=== PATIENT | female | born 1935 | race Caucasian/White ===

== ENCOUNTER 2018-04-24 05:35 | Inpatient (IN) | payer MEDICARE ==
--- NOTE | 2018-04-24 05:50 | Emergency Department Record ---
History of Present Illness - General Chief Complaint: Abdominal Pain Stated Complaint: CHEST PAIN Time Seen by Provider: 04/24/18 05:44 Source: Patient - History of Present Illness Initial Comments: The patient states that she developed generalized abdominal pain around 8:30 or 9:00 last evening, 9 hours ago. It has moved into her epigastrum and up slightly into her chest, with a trace of it into her back. EMS reported it as chest pain, gave he an aspirin, nitro, and zofran. The patient states that the zofran helped her nausea, but the nitro did not help her pain. She denies fever , chills, cough, shortness of breath. For the past several days to a week she has had diarrhea and vomiting as well. She has brown emesis, and brown diarrhea , denies bloody or black stool. PSH: she has had a total hysterectomy and appendectomy in years past. MD Complaint: Abdominal pain - Related Data Home Medications Medication Instructions Recorded Confirmed Last Taken Acetaminophen [Tylenol] 325 mg PO TID 04/24/18 04/24/18 04/23/18 Albuterol Sulfate [Ventolin Hfa] 1 - 2 puff IH .EVERY 4-6 HOURS PRN 04/24/18 Unknown Alprazolam [Xanax] 0.25 mg PO BID PRN 04/24/18 04/24/18 04/24/18 Amlodipine Besylate [Norvasc] 5 mg PO DAILY 04/24/18 04/24/18 04/23/18 Brimonidine Tartrate/Timolol 1 drop OP TID 04/24/18 04/24/18 04/23/18 [Combigan 0.2%-0.5% Eye Drops] Buspirone HCl [Buspar] 10 mg PO BID 04/24/18 04/24/18 04/23/18 Celecoxib [Celebrex] 200 mg PO BID 04/24/18 04/24/18 04/23/18 Cyclosporine [Restasis] 1 each OP BID 04/24/18 04/24/18 04/23/18 Dextran 70/Hypromellose 1 each OP ASDIR PRN 04/24/18 04/24/18 Unknown [Artificial Tears] Docusate Sodium [Colace] 100 mg PO BID 04/24/18 04/24/18 04/23/18 Donepezil HCl [Aricept] 10 mg PO DAILY 04/24/18 04/24/18 04/23/18 Hydrocodone/Acetaminophen [[place] 1 tab PO BID PRN 04/24/18 04/24/18 04/23/18 5mg/325mg] Latanoprost 0.005% Opth [place] 1 drop OPTH QHS 04/24/18 04/24/18 04/23/18 [Xalatan] Metaxalone [Skelaxin] 800 mg PO TID 04/24/18 04/24/18 04/23/18 Montelukast Sodium [Singulair] 10 mg PO QPM 04/24/18 04/24/18 04/23/18 Multivitamin [Daily Multiple 1 each PO DAILY 04/24/18 04/24/18 04/23/18 Vitamin] Polyethylene Glycol 3350 [Miralax] 1 packet PO DAILY 04/24/18 04/24/18 04/23/18 Propylene Glycol [Systane Balance] 20 ml OP Q2H PRN 04/24/18 04/24/18 Unknown Simvastatin [Zocor] 20 mg PO DAILY 04/24/18 04/24/18 04/23/18 Sumatriptan Succinate [Imitrex] 50 mg PO DAILY PRN 04/24/18 04/24/18 04/12/18 Trazodone HCl 150 mg PO QHS 04/24/18 04/24/18 04/23/18 Vit C/Vit E/Lutein/Min/[place]-3 1 each PO DAILY 04/24/18 04/24/18 04/23/18 [Ocuvite Softgel] Allergies Allergy/AdvReac Type Severity Reaction Status Date / Time Penicillins Allergy PT UNSURE Verified 04/24/18 05:38 OF REACTION sulfamethoxazole Allergy PT UNSURE Verified 04/24/18 05:38 [From Bactrim] OF REACTION trimethoprim [From Bactrim] Allergy PT UNSURE Verified 04/24/18 05:38 OF REACTION Review of Systems Reviewed: No additional complaints except as noted below Constitutional: Reports: As per HPI. Denies: Chills, Fever, Malaise, Night sweats, Weakness, Weight change Eyes: Reports: As per HPI. Denies: Eye discharge, Eye pain, Photophobia, Vision change ENT: Reports: As per HPI. Denies: Congestion, Dental pain, Ear pain, Epistaxis , Hearing loss, Throat pain Respiratory: Reports: As per HPI. Denies: Cough, Dyspnea, Hemoptysis, Stridor, Wheezes Cardiovascular: Reports: As per HPI. Denies: Arrhythmia, Chest pain, Dyspnea on exertion, Edema, Murmurs, Orthopnea, Palpitations, Paroxysmal nocturnal dyspnea, Rheumatic Fever, Syncope Endocrine: Reports: As per HPI. Denies: Fatigue, Heat or cold intolerance, Polydipsia, Polyuria Gastrointestinal: Reports: As per HPI. Denies: Abdominal pain, Constipation, Diarrhea, Hematemesis, Hematochezia, Melena, Nausea, Vomiting Genitourinary: Reports: As per HPI. Denies: Abnormal menses, Discharge, Dyspareunia, Dysuria, Frequency, Hematuria, Incontinence, Retention, Urgency Musculoskeletal: Reports: As per HPI. Denies: Arthralgia, Back pain, Gout, Joint swelling, Myalgia, Neck pain Skin: Reports: As per HPI. Denies: Bruising, Change in color, Change in hair/ nails, Lesions, Pruritus, Rash Neurological: Reports: As per HPI. Denies: Abnormal gait, Confusion, Headache, Numbness, Paresthesias, Seizure, Tingling, Tremors, Vertigo, Weakness Psychiatric: Reports: As per HPI. Denies: Anxiety, Auditory hallucinations, Depression, Homicidal thoughts, Suicidal thoughts, Visual hallucinations Hematological/Lymphatic: Reports: As per HPI. Denies: Anemia, Blood Clots, Easy bleeding, Easy bruising, Swollen glands Physical Exam - General General Appearance: Alert, Oriented x3, Cooperative, No acute distress, Other ( elderly, resting tremor) - Head Head exam: Normal inspection - Eye Eye exam: Normal appearance, PERRL Pupils: Normal accommodation - ENT ENT exam: Normal exam, Mucous membranes moist, Normal external ear exam, Normal orophraynx, TM's normal bilaterally Ear exam: Normal external inspection. negative: External canal tenderness Nasal Exam: Normal inspection. negative: Discharge, Sinus tenderness Mouth exam: Normal external inspection, Tongue normal Teeth exam: Normal inspection. negative: Dental caries Throat exam: Normal inspection. negative: Tonsillar erythema, Tonsillar exudate - Neck Neck exam: Normal inspection, Full ROM, Other (JVD at 30 degress head elevation) . negative: Tenderness - Respiratory Respiratory exam: Normal lung sounds bilaterally. negative: Respiratory distress - Cardiovascular Cardiovascular Exam: Regular rate, Normal rhythm, Normal heart sounds - GI/Abdominal GI/Abdominal exam: Soft, Normal bowel sounds, Tenderness (mid and epigastric abdominal tenderness on palpation). negative: Distended, Rigid - Rectal Rectal exam: Deferred - exam: Deferred - Extremities Extremities exam: Normal inspection, Full ROM, Normal capillary refill. negative: Calf tenderness, Pedal edema, Tenderness - Back Back exam: Reports: Normal inspection, Full ROM. Denies: Muscle spasm, Rash noted, Tenderness - Neurological Neurological exam: Alert, CN II-XII intact, Normal gait, Oriented X3, Reflexes normal. 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 It may be more sore from all her vomiting, but it is otherwise unchanged from he usual. 04/24/18 06:49 Reevaluation #2: The patient is in xray currently. Care turned over to Dr. Gore at 7 a.m. shift changed due to pending studies. 04/24/18 06:50 Medical Decision Making - Data Complexity MDM Data: Labs Ordered and/or Reviewed, EKG Ordered and/or Reviewed (NSR, nl axis, LVH, no acute changes, no prior available) - Lab Data Result diagrams: 04/24/18 06:05 04/24/18 06:05 - EKG Data -: EKG Interpreted by Me EKG: No Acute Changes Disposition Clinical Impression: Abdominal pain Qualifiers: Abdominal location: generalized Qualified Code(s): R10.84 - Generalized abdominal pain Forms: Patient Portal Access Quality - Quality Measures Quality Measures: N/A - Blood Pressure Screening Does Patient Have Any of the Following: No Blood Pressure Classification: Pre-Hypertensive BP Reading Systolic Measurement: 145 Diastolic Measurement: 84 Screening for High Blood Pressure: < Pre-Hypertensive BP, F/U Documented > [ G8950] Pre-Hypertensive Follow-up Interventions: Follow-up with rescreen every year.
[2018-04-24 06:12] LABS: HEMATOCRIT 37.7 % (35.0-47.0); HEMOGLOBIN 12.1 gm/dl (11.6-16.0); MEAN CELL VOLUME 86.3 fl (81-97); MEAN CORPUSCULAR HEMOGLOBIN 27.7 pg (27-33); MEAN CORPUSCULAR HGB CONC 32.1 g/dl (32-36); MEAN PLATELET VOLUME 8.8 fl (7.4-10.4); PLATELET COUNT 365 K/uL (130-400); RED BLOOD COUNT 4.37 M/uL (3.80-5.40); RED CELL DISTRIBUTION WIDTH 15.6 % (11.5-14.5); WHITE BLOOD COUNT W/O DIFF 10.6 K/uL (4.2-12.2)
[2018-04-24 06:23] LABS: PARTIAL THROMBOPLASTIN TIME 44.6 SECONDS (24.5-39.1); PROTHROMBIN TIME (PATIENT) 10.3 SECONDS (9.5-12.1)
[2018-04-24 06:25] LABS: BLOOD UREA NITROGEN 21 mg/dL (8-23); CREATININE 0.6 mg/dL (0.5-0.9); EST GLOMERULAR FILTRATION RATE > 60 mL/min
[2018-04-24 06:26] LABS: TOTAL PROTEIN 6.9 g/dL (6.6-8.7)
[2018-04-24 06:28] LABS: GLUCOSE,RANDOM 126 mg/dL (74-109)
[2018-04-24 06:30] LABS: ALB/GLOB RATIO 1.2 (1.1-1.8); ALBUMIN 3.7 g/dL (4.0-5.0); ALT/SGPT < 5 U/L (<33); AST/SGOT 9 U/L (10.0-35.0)
[2018-04-24 06:31] LABS: ALKALINE PHOSPHATASE 59 U/L (35-104); LIPASE 22 U/L (13-60)
[2018-04-24 06:43] LABS: THYROID STIMULATING HORMONE 1.56 uIU/mL (0.270-4.20)
[2018-04-24] MEDS ORDERED: HYDROMORPHONE HCL 2 MG/ML VIAL IVP ONE ×2 (07:30→08:18)
[2018-04-24] MEDS ORDERED: ONDANSETRON HCL IV 4 MG/2 ML VIAL IVP ONE (07:30)
[2018-04-24] MEDS ORDERED: PANTOPRAZOLE SODIUM IV 40 MG VIAL IVP ONE ×2 (08:19→16:14)
[2018-04-24] MEDS ORDERED: METOCLOPRAMIDE HCL 10 MG/2 ML VIAL IVP ONE (08:22)
--- NOTE | 2018-04-24 08:51 | Emergency Department Record ---
History of Present Illness - General Chief Complaint: Abdominal Pain Stated Complaint: CHEST PAIN Time Seen by Provider: 04/24/18 05:44 Source: Patient Mode of Arrival: EMS - History of Present Illness MD Complaint: Abdominal pain Onset/Timin -: Hour(s) Location: Diffuse Radiation: Epigastric Severity scale (1-10): 8 Consistency: Constant, Getting worse Associated Symptoms: Diarrhea, Nausea, Vomiting - Related Data Patient : No Home Medications Medication Instructions Recorded Confirmed Last Taken Acetaminophen [Tylenol] 325 mg PO TID 04/24/18 04/24/18 04/23/18 Albuterol Sulfate [Ventolin Hfa] 1 - 2 puff IH .EVERY 4-6 HOURS PRN 04/24/18 Unknown Alprazolam [Xanax] 0.25 mg PO BID PRN 04/24/18 04/24/18 04/24/18 Amlodipine Besylate [Norvasc] 5 mg PO DAILY 04/24/18 04/24/18 04/23/18 Brimonidine Tartrate/Timolol 1 drop OP TID 04/24/18 04/24/18 04/23/18 [Combigan 0.2%-0.5% Eye Drops] Buspirone HCl [Buspar] 10 mg PO BID 04/24/18 04/24/18 04/23/18 Celecoxib [Celebrex] 200 mg PO BID 04/24/18 04/24/18 04/23/18 Cyclosporine [Restasis] 1 each OP BID 04/24/18 04/24/18 04/23/18 Dextran 70/Hypromellose 1 each OP ASDIR PRN 04/24/18 04/24/18 Unknown [Artificial Tears] Docusate Sodium [Colace] 100 mg PO BID 04/24/18 04/24/18 04/23/18 Donepezil HCl [Aricept] 10 mg PO DAILY 04/24/18 04/24/18 04/23/18 Hydrocodone/Acetaminophen [[place] 1 tab PO BID PRN 04/24/18 04/24/18 04/23/18 5mg/325mg] Latanoprost 0.005% Opth [place] 1 drop OPTH QHS 04/24/18 04/24/18 04/23/18 [Xalatan] Metaxalone [Skelaxin] 800 mg PO TID 04/24/18 04/24/18 04/23/18 Montelukast Sodium [Singulair] 10 mg PO QPM 04/24/18 04/24/18 04/23/18 Multivitamin [Daily Multiple 1 each PO DAILY 04/24/18 04/24/18 04/23/18 Vitamin] Polyethylene Glycol 3350 [Miralax] 1 packet PO DAILY 04/24/18 04/24/18 04/23/18 Propylene Glycol [Systane Balance] 20 ml OP Q2H PRN 04/24/18 04/24/18 Unknown Simvastatin [Zocor] 20 mg PO DAILY 04/24/18 04/24/18 04/23/18 Sumatriptan Succinate [Imitrex] 50 mg PO DAILY PRN 04/24/18 04/24/18 04/12/18 Trazodone HCl 150 mg PO QHS 04/24/18 04/24/18 04/23/18 Vit C/Vit E/Lutein/Min/[place]-3 1 each PO DAILY 04/24/18 04/24/18 04/23/18 [Ocuvite Softgel] Allergies Allergy/AdvReac Type Severity Reaction Status Date / Time Penicillins Allergy PT UNSURE Verified 04/24/18 05:38 OF REACTION sulfamethoxazole Allergy PT UNSURE Verified 04/24/18 05:38 [From Bactrim] OF REACTION trimethoprim [From Bactrim] Allergy PT UNSURE Verified 04/24/18 05:38 OF REACTION Travel Screening - Travel/Exposure Within Last 30 Days Have you traveled within the last 30 days?: No - Travel Symptoms Symptom Screening: None Review of Systems Constitutional: Reports: As per HPI. Denies: Chills, Fever, Malaise, Night sweats, Weakness, Weight change Eyes: Reports: As per HPI. Denies: Eye discharge, Eye pain, Photophobia, Vision change ENT: Reports: As per HPI. Denies: Congestion, Dental pain, Ear pain, Epistaxis , Hearing loss, Throat pain Respiratory: Reports: As per HPI. Denies: Cough, Dyspnea, Hemoptysis, Stridor, Wheezes Cardiovascular: Reports: As per HPI. Denies: Arrhythmia, Chest pain, Dyspnea on exertion, Edema, Murmurs, Orthopnea, Palpitations, Paroxysmal nocturnal dyspnea, Rheumatic Fever, Syncope Endocrine: Reports: As per HPI. Denies: Fatigue, Heat or cold intolerance, Polydipsia, Polyuria Gastrointestinal: Reports: As per HPI. Denies: Abdominal pain, Constipation, Diarrhea, Hematemesis, Hematochezia, Melena, Nausea, Vomiting Genitourinary: Reports: As per HPI. Denies: Abnormal menses, Discharge, Dyspareunia, Dysuria, Frequency, Hematuria, Incontinence, Retention, Urgency Musculoskeletal: Reports: As per HPI. Denies: Arthralgia, Back pain, Gout, Joint swelling, Myalgia, Neck pain Skin: Reports: As per HPI. Denies: Bruising, Change in color, Change in hair/ nails, Lesions, Pruritus, Rash Neurological: Reports: As per HPI. Denies: Abnormal gait, Confusion, Headache, Numbness, Paresthesias, Seizure, Tingling, Tremors, Vertigo, Weakness Psychiatric: Reports: As per HPI. Denies: Anxiety, Auditory hallucinations, Depression, Homicidal thoughts, Suicidal thoughts, Visual hallucinations Hematological/Lymphatic: Reports: As per HPI. Denies: Anemia, Blood Clots, Easy bleeding, Easy bruising, Swollen glands Past Medical History - SOCIAL HISTORY Smoking Status: Never smoker - RESPIRATORY Hx Respiratory Disorders: No - CARDIOVASCULAR Hx Cardio Disorders: Yes Hx Hypertension: Yes Comment:: high cholesterol - NEURO Hx Neuro Disorders: Yes Hx CVA: (Stroke R eye) Hx Dementia: Yes Comment:: Glaucoma - GI Hx GI Disorders: Yes Hx Diverticulitis: Yes Hx Liver Disease: Yes (spots on it) Hx Pancreatitis: Yes Hx Ulcer: Yes - Hx Genitourinary Disorders: Yes Hx Kidney Stones: Yes - ENDOCRINE Hx Endocrine Disorders: No - MUSCULOSKELETAL Hx Musculoskeletal Disorders: Yes Hx Arthritis: Yes (osteoporosis) Hx Osteoporosis: Yes - PSYCH Hx Psych Problems: Yes Hx Anxiety: Yes Hx Depression: Yes - HEMATOLOGY/ONCOLOGY Hx Hematology/Oncology Disorders: No Family Medical History Any Significant Family History?: Yes Hx Resp Disorders: Father Course Vital Signs 04/24/18 04/24/18 04/24/18 05:38 06:31 07:33 Temperature 98.4 F Pulse Rate [ 86 79 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 Her BP is much improved and she is resting comfortably. I did discuss the CT results with the patient and the need for admission due to the persistent vomiting, pain, and ulcer on CT. I then did discuss the case with Dr. Chan and he does accept the admission. 04/24/18 08:49 Medical Decision Making - Data Complexity MDM Data: Labs Ordered and/or Reviewed, X-Ray Ordered and/or Reviewed - Lab Data Result diagrams: 04/24/18 06:05 04/24/18 06:05 Lab Results 04/24/18 04/24/18 04/24/18 Range/Units 05:53 06:05 06:05 WBC 10.6 (4.2-12.2) K/uL RBC 4.37 (3.80-5.40) M/uL Hgb 12.1 (11.6-16.0) gm/dl Hct 37.7 (35.0-47.0) % MCV 86.3 (81-97) fl MCH 27.7 (27-33) pg MCHC 32.1 (32-36) g/dl RDW 15.6 H (11.5-14.5) % Plt Count 365 (130-400) K/uL MPV 8.8 (7.4-10.4) fl Neutrophils % 82.0 H (47-80) % Band Neutrophils % 0.0 (0-5) % Eosinophils % Not Reportable Basophils % Not Reportable Lymphocytes 10.0 L (16-45) % Monocytes 8.0 (0-9) % Basophils 0.0 (0-6) % Eosinophil Count 0.0 (0-6) % PT 10.3 (9.5-12.1) SECONDS INR 1.0 APTT 44.6 H (24.5-39.1) SECONDS Sodium (136-145) mmol/L Potassium (3.4-4.5) mmol/L Chloride (98-107) mmol/L Carbon Dioxide (22-29) mmol/L Anion Gap (7-16) BUN (8-23) mg/dL Creatinine (0.5-0.9) mg/dL Estimated GFR mL/min Random Glucose (74-109) mg/dL Calcium (8.8-10.2) mg/dL Total Bilirubin (0.2-1.0) mg/dL AST (10.0-35.0) U/L ALT (<33) U/L Alkaline Phosphatase (35-104) U/L Troponin T (0-0.010) ng/mL NT-Pro-B Natriuret Pep (<450) pg/mL Total Protein (6.6-8.7) g/dL Albumin (4.0-5.0) g/dL Globulin (1.4-4.8) gm/dL Albumin/Globulin Ratio (1.1-1.8) Lipase Cancelled TSH (0.270-4.20) uIU/mL 04/24/18 Range/Units 06:05 WBC (4.2-12.2) K/uL RBC (3.80-5.40) M/uL Hgb (11.6-16.0) gm/dl Hct (35.0-47.0) % MCV (81-97) fl MCH (27-33) pg MCHC (32-36) g/dl RDW (11.5-14.5) % Plt Count (130-400) K/uL MPV (7.4-10.4) fl Neutrophils % (47-80) % Band Neutrophils % (0-5) % Eosinophils % Basophils % Lymphocytes (16-45) % Monocytes (0-9) % Basophils (0-6) % Eosinophil Count (0-6) % PT (9.5-12.1) SECONDS INR APTT (24.5-39.1) SECONDS Sodium 140 (136-145) mmol/L Potassium 4.0 (3.4-4.5) mmol/L Chloride 97 L (98-107) mmol/L Carbon Dioxide 27.0 (22-29) mmol/L Anion Gap 16.0 (7-16) BUN 21 (8-23) mg/dL Creatinine 0.6 (0.5-0.9) mg/dL Estimated GFR > 60 mL/min Random Glucose 126 H (74-109) mg/dL Calcium 9.7 (8.8-10.2) mg/dL Total Bilirubin 0.20 (0.2-1.0) mg/dL AST 9 L (10.0-35.0) U/L ALT < 5 (<33) U/L Alkaline Phosphatase 59 (35-104) U/L Troponin T < 0.010 (0-0.010) ng/mL NT-Pro-B Natriuret Pep 443.10 (<450) pg/mL Total Protein 6.9 (6.6-8.7) g/dL Albumin 3.7 L (4.0-5.0) g/dL Globulin 3.2 (1.4-4.8) gm/dL Albumin/Globulin Ratio 1.2 (1.1-1.8) Lipase 22 TSH 1.56 (0.270-4.20) uIU/mL - Radiology Data Radiology results: Report reviewed (CT: Severe duodenol wall thickening with inflammation. Probable ulcer. Neg for perf. or free air.) Disposition Disposition: Admit Clinical Impression: Abdominal pain Qualifiers: Abdominal location: unspecified location Qualified Code(s): R10.9 - Unspecified abdominal pain Disposition: Still a Patient at [facility] Decision to Admit: Admit from ER Decision to Admit Date: 04/24/18 Decision to Admit Time: 08:51 Accepting Physician: Rocio Time Discussed w/Accepting Physician: 08:51 Condition: (2) Stable Time of Disposition: 08:51 Quality - Quality Measures Quality Measures: N/A - Blood Pressure Screening View Details: Yes Does Patient Have Any of the Following: Active Dx of HTN Blood Pressure Classification: Hypertensive Reading Systolic Measurement: 166 Diastolic Measurement: 77 Screening for High Blood Pressure: Patient Exclusion, Hx of HTN [G9744]
[2018-04-24 09:20] LABS: URINE APPEARANCE CLEAR; URINE BILIRUBIN NEGATIVE (NEGATIVE); URINE BLOOD SMALL (NEGATIVE); URINE COLOR YELLOW; URINE GLUCOSE (UA) NEGATIVE (NEGATIVE); URINE KETONE NEGATIVE (NEGATIVE); URINE LEUKOCYTE ESTERASE NEGATIVE (NEGATIVE); URINE NITRITE NEGATIVE (NEGATIVE); URINE UROBILINOGEN 0.2 E.U./dL (0.20 - 1.00)
[2018-04-24 09:31] LABS: URINE PROTEIN 300 mg/dL (NEGATIVE)
[2018-04-24 09:33] LABS: URINE AMORPHOUS SEDIMENT 1+; URINE EPITHELIAL CELLS 0 - 2 (FEW); URINE RBC 0 - 2 (NONE SEEN); URINE WBC 0 - 2 (0-2/hpf)
[2018-04-24] MEDS ORDERED: METOCLOPRAMIDE HCL 10 MG/2 ML VIAL IVP PRN (10:01)
[2018-04-24] MEDS ORDERED: DEXTRAN OP PRN (10:01)
[2018-04-24] MEDS ORDERED: BRIMONIDINE TARTRATE OP SCH (10:01)
[2018-04-24] MEDS ORDERED: HYPROMELLOSE OP PRN (10:01)
[2018-04-24] MEDS ORDERED: TIMOLOL OP SCH (10:01)
[2018-04-24] MEDS ORDERED: ONDANSETRON HCL IV 4 MG/2 ML VIAL IVP PRN (10:01)
[2018-04-24] MEDS: BUSPIRONE 5 MG TABLET PO SCH ×2 (11:53→21:31)
[2018-04-24] MEDS: HYDROCODONE/APAP 5/325MG TABLET PO SCH ×2 (11:54→21:29)
[2018-04-24] MEDS: GABAPENTIN 300 MG CAPSULE PO SCH ×3 (11:54→21:30)
[2018-04-24] MEDS: DONEPEZIL HCL 5 MG TABLET PO SCH (11:55)
[2018-04-24] MEDS: SUCRALFATE 1 G/10 ML UD PO SCH ×4 (11:56→21:31)
[2018-04-24] MEDS: BRIMONIDINE OPTH OPTH SCH ×3 (11:56→21:32)
[2018-04-24] MEDS: AMLODIPINE BESYLATE 5MG TAB PO SCH (11:56)
[2018-04-24] MEDS: Non-Formulary MISC (Cyclosporine [Restasis] 1 EACH) OP SCH ×2 (11:56→21:31)
[2018-04-24] MEDS: SODIUM CHLORIDE 0.9% IVP SCH (16:58)
[2018-04-24] MEDS: PANTOPRAZOLE SODIUM IVP SCH (16:58)
[2018-04-24] MEDS: PANTOPRAZOLE SODIUM IV 40 MG VIAL IV SCH (17:00)
[2018-04-24] MEDS: HYDROMORPHONE HCL 2 MG/ML VIAL IV PRN (18:38)
[2018-04-24] MEDS: TRAZODONE 50 MG TABLET PO SCH (21:30)
[2018-04-24] MEDS: SYSTANE EYE OPTH SCH (21:33)
[2018-04-24] MEDS: ALPRAZOLAM 0.25 MG TABLET PO PRN (21:36)
[2018-04-24] MEDS: 0.9 % SODIUM CHLORIDE 1000ML 1,000 ML IV PRN (21:39)
[2018-04-24] MEDS: LATANOPROST 0.005% OPTH SOLUTION 2.5ML BOTTLE OPTH SCH (21:39)
[2018-04-25] MEDS: HYDROMORPHONE HCL 2 MG/ML VIAL IV PRN ×3 (03:33→20:16)
[2018-04-25] MEDS: PANTOPRAZOLE SODIUM IVP SCH ×3 (03:34→19:51)
[2018-04-25] MEDS: SODIUM CHLORIDE 0.9% IVP SCH ×3 (03:34→19:51)
[2018-04-25 07:01] LABS: BASO % 0.1 % (0-6); EOS % 0.6 % (0-6); GRAN % 72.9 % (47-80); HEMATOCRIT 31.2 % (35.0-47.0); HEMOGLOBIN 9.3 gm/dl (11.6-16.0); LYMPH % 16.9 % (16-45); MEAN CELL VOLUME 90.2 fl (81-97); MEAN CORPUSCULAR HGB CONC 29.8 g/dl (32-36); MEAN PLATELET VOLUME 9.1 fl (7.4-10.4); MONO % 9.5 % (0-9); PLATELET COUNT 253 K/uL (130-400); RED BLOOD COUNT 3.46 M/uL (3.80-5.40); RED CELL DISTRIBUTION WIDTH 15.7 % (11.5-14.5); WHITE BLOOD COUNT W/O DIFF 8.2 K/uL (4.2-12.2)
--- NOTE | 2018-04-25 07:11 | History and Physical Report ---
DATE: 04/24/2018 CHIEF COMPLAINT: Abdominal pain, vomiting brown material with diarrhea for the last 2 or 3 days and abdominal pain for 9 hours. HISTORY OF PRESENT ILLNESS: This 82-year-old patient from [facility], the memory side of the unit, presented with abdominal pain for 9 hours by EMS. They thought it might be chest pain. They gave her a nitroglycerin. It did not seem to do anything. They gave her an aspirin and brought her to the hospital. She was evaluated in the emergency department by Dr. Dinh and Dr. Gore. CT scan of the abdomen revealed very thickened distal esophagus and duodenum with possible ulcer formation or diverticulum of the duodenum. EKG was done, and it is showing normal sinus rhythm, no acute changes. Laboratory revealing hemoglobin of 12.1, WBC 10,600, potassium 4.0, BUN 21, creatinine 0.6. Troponin was less than 0.010. Brain natriuretic peptide 443. TSH 1.56. UA revealing protein 300 mg in the urine. The discussion with Dr. Gore, he stated that Dr. Quiroga is not available. He checked with Dr. Govea, the surgeon, if he would do an EGD. He said at this point he would not recommend it because medical treatment is indicated. Dr. Gore wanted him admitted to the hospital for IV treatment of Protonix and serial hemoglobin and further evaluation. 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 She has had kidney stones in the past. She has arthritis and osteoporosis. Depression and anxiety. PAST SURGICAL HISTORY: She has had an appendectomy, hysterectomy, back surgery, left leg and hip surgery with rods, right hip with plate inserted. SOCIAL HISTORY: She claims she never smoked. No alcohol or drug use. History is mostly from the chart. MEDICATIONS: On admission: 1. Xanax 0.25 b.i.d. 2. Artificial Tears p.r.n. 3. Sumatriptan 50 mg for migraine headache 1 and then repeat in 2 hours if necessary p.r.n. 4. Eyedrops Systane 2 drops both eyes 12 times per day as needed p.r.n. 5. Ventolin inhaler 2 puffs every 4 hours p.r.n. 6. Metaxalone 800 mg t.i.d. (Skelaxin). 7. Singulair 10 mg every day. 8. Multiple vitamins 1 a day. 9. Simvastatin 20 mg daily. 10. Trazodone 150 mg at h.s. 11. Amlodipine 5 mg daily. 12. Brimonidine solution 0.15% 1 drop both eyes 3 times a day ([place]). 13. Buspirone 10 mg twice a day. 14. Celebrex 200 mg every 12 hours. We will stop that. 15. Colace 100 mg twice a day. 16. Aricept 10 mg daily. 17. Gabapentin 300 mg t.i.d. 18. [place] 5 mg b.i.d. 19. I-Norma tablets 1 a day. 20. Xalatan 0.005% 1 drop both eyes at bedtime. 21. Tylenol 325 three times a day. ALLERGIES: PENICILLIN, SULFA, TRIMETHOPRIM. FAMILY/PSYCHOSOCIAL HISTORY: Unobtainable because she has dementia and no family members are here. REVIEW OF SYSTEMS: From the ICAL staff and the ER staff: HEENT: No upper respiratory infectious problems. Cardiovascular: See Chief Complaint. Possible chest pain but she has more vomiting and diarrhea. Respiratory: She has COPD, asthma. Gastrointestinal: See Chief Complaint. Diarrhea and vomiting brown material. Genitourinary: No dysuria, hematuria, frequency, or burning on urination. Musculoskeletal: She has chronic back pain. Multiple surgeries. 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 No obvious paralysis or paresthesias. She does have dementia. 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 Endocrine: No diabetes or thyroid disease. Integument: No rash, ulcers, change in moles, or yellow skin. PHYSICAL EXAMINATION: VITALS: Height 5 feet, weight 112 pounds. Temperature 98.5, pulse 81, blood pressure 110/59, respiratory rate 18, pulse ox 94% on room air. HEENT: Pupils are equal, round, and reactive to light and accommodation. Extraocular muscles are intact. Throat is clear. Nose is clear. Tympanic membranes are lim. NECK: Supple. No jugular venous distention. No hepatojugular reflux. No carotid bruits. Thyroid is smooth. CARDIOVASCULAR: Regular rate and rhythm without murmurs, clicks, rubs, or gallops. RESPIRATORY: Decreased breath sounds bilaterally. No wheezing. ABDOMEN: Tender in the epigastric area. No rebound or rigidity. EXTREMITIES: No pitting edema. No cyanosis, no clubbing. Full range of motion. Peripheral pulses are good. BREASTS: Exam deferred. GYNECOLOGICAL: Exam deferred. RECTAL: Exam deferred. GENITALIA: Normal female genitalia. NEUROLOGIC: Cranial nerves II-XII intact. No gross defects. Sensation normal, strength normal. Deep tendon reflexes equal bilaterally with Babinski negative. MENTAL STATUS: Alert. She is disoriented to time and place but not person. IMPRESSION: 1. Epigastric abdominal pain. 2. Vomiting and diarrhea. 3. Abnormal CT scan of the abdomen and pelvis showing thickening of the distal esophagus and duodenum. 4. Dementia. 5. Asthma/chronic obstructive pulmonary disease. 6. Arthritis, on Celebrex which could be causing the ulcer. PLAN: Discontinue Celebrex. IV Protonix. Serial hemoglobin. Contact GI and discussion options for treatment. INPATIENT CERTIFICATION: Admit to inpatient care. Based on my medical assessment, after consideration of patient's risk factors, age, comorbidities, and patient's presenting symptoms and acuity, I expect that this patient will remain in the hospital greater than or equal to 2 midnights and that the services needed warrant inpatient care because of IV Protonix and further evaluation of abdominal pain. Estimated length of stay is 3 days. The patient may reasonably be expected to be discharged or transferred to a hospital within 96 hours after admission to [facility]. Services needed are IV Protonix and serial hemoglobin. I certify that my determination is in accordance with my understanding of Medicare requirements for reasonable and necessary inpatient services. [facility] HOSPITALNick
[2018-04-25 07:13] LABS: MEAN CORPUSCULAR HEMOGLOBIN 26.8 pg (27-33)
--- NOTE | 2018-04-25 07:24 | RADIOLOGY REPORT ---
EXAM: CHEST, TWO VIEWS HISTORY: PAIN. TECHNIQUE: Frontal and lateral views of the chest were obtained. Comparison: None. FINDINGS: The heart size is normal. Underlying emphysema. Osteopenia. No pneumothorax. Atheromatous change of the thoracic aorta. Mild elevation of the right hemidiaphragm. Minimal scarring lateral right upper lobe. Minor scarring left upper lobe. IMPRESSION: UNDERLYING EMPHYSEMA WITH SCARRING IN THE UPPER LOBES BILATERALLY. JOB NUMBER: [id number] [facility]
--- NOTE | 2018-04-25 07:36 | CT SCAN REPORT ---
EXAM: CT OF THE ABDOMEN AND PELVIS HISTORY: UPPER ABDOMINAL PAIN. TECHNIQUE: CT of the abdomen and pelvis was performed following the IV administration of 75 ml of Omnipaque 300 contrast. Oral contrast was also utilized. Comparison: None. FINDINGS: Limited evaluation of the lung bases shows severe emphysematous change. 6 mm nodular density in the right lung base with some minimal ground glass and reticulonodular change. Areas of bronchiectasis in the left lung base. The osseous structures are grossly intact. There are several subcentimeter hypodensities throughout the liver likely cysts or hemangiomas in the absence of cancer history. The spleen, adrenal glands, and pancreas are unremarkable. There is severe right renal cortical thinning and atrophy. Small bilateral renal cysts. The gallbladder is present and mildly distended. There is mild prominence of the intra and extrahepatic biliary tree. There is severe wall thickening of the distal esophagus as well as of the proximal duodenum. There is inflammatory change surrounding the proximal duodenum as well as what may be a large area of duodenal ulcer formation versus duodenal diverticulum extending from the second/third portion of the duodenum. Correlation with endoscopy may be of benefit. There is distention of the stomach. No gross evidence for bowel obstruction. No free air or free fluid. There are bilateral hip prostheses limiting evaluation of the pelvis. There is a large amount of stool in the rectal vault. What may be an area of diverticulum extending from the left rectal wall versus asymmetry of the left rectal wall. This area is incompletely imaged on this exam. Sigmoid diverticulosis. No CT evidence for diverticulitis. Moderate atheromatous change. IMPRESSION: 1. SEVERE WALL THICKENING OF THE DUODENUM WITH SURROUNDING INFLAMMATORY CHANGES AND WHAT IS EITHER A LARGE DUODENAL DIVERTICULUM OR ULCERATION, ABOVE. CORRELATION WITH ENDOSCOPY MAY BE OF BENEFIT. THERE IS ALSO WALL THICKENING OF THE DISTAL ESOPHAGUS WHICH COULD BE FURTHER ASSESSED ON DEDICATED ENDOSCOPY. 2. THE GALLBLADDER IS MILDLY DISTENDED. MILD BILIARY DUCTAL DILATATION. DISTENTION OF THE STOMACH. 3. SCATTERED HYPODENSITIES THROUGHOUT THE LIVER LIKELY CYSTS OR HEMANGIOMAS IN THE ABSENCE OF THE CANCER HISTORY. 4. SEVERE RIGHT RENAL CORTICAL THINNING AND ATROPHY. SMALL BILATERAL RENAL CYSTS. 5. QUESTIONABLE OUTPOUCHING FROM THE LEFT LATERAL ASPECT OF THE RECTUM. RECOMMEND ATTENTION ON FOLLOW-UP, WITH COLONOSCOPY. SIGMOID DIVERTICULOSIS WITHOUT CT EVIDENCE FOR DIVERTICULITIS. JOB NUMBER: [id number] [facility]
[2018-04-25 07:58] LABS: BLOOD UREA NITROGEN 15 mg/dL (8-23); CREATININE 0.7 mg/dL (0.5-0.9); EST GLOMERULAR FILTRATION RATE > 60 mL/min; GLUCOSE,RANDOM 93 mg/dL (74-109)
[2018-04-25] MEDS: HYDROCODONE/APAP 5/325MG TABLET PO SCH ×2 (08:20→21:34)
[2018-04-25] MEDS: 0.9 % SODIUM CHLORIDE 1000ML 1,000 ML IV PRN (09:26)
[2018-04-25] MEDS: GABAPENTIN 300 MG CAPSULE PO SCH ×3 (09:53→21:34)
[2018-04-25] MEDS: SUCRALFATE 1 G/10 ML UD PO SCH ×4 (09:53→21:34)
[2018-04-25] MEDS: DONEPEZIL HCL 5 MG TABLET PO SCH (09:54)
[2018-04-25] MEDS: BUSPIRONE 5 MG TABLET PO SCH ×2 (09:54→21:35)
[2018-04-25] MEDS: AMLODIPINE BESYLATE 5MG TAB PO SCH (09:54)
[2018-04-25] MEDS: Non-Formulary MISC (Cyclosporine [Restasis] 1 EACH) OP SCH ×2 (09:57→21:35)
[2018-04-25] MEDS: PANTOPRAZOLE SODIUM IV 40 MG VIAL IV SCH (09:57)
[2018-04-25] MEDS: BRIMONIDINE OPTH OPTH SCH ×3 (09:57→21:34)
[2018-04-25] MEDS: SYSTANE EYE OPTH SCH ×2 (09:58→21:34)
[2018-04-25] MEDS ORDERED: PANTOPRAZOLE SODIUM IV 40 MG VIAL IV SCH (10:00)
[2018-04-25] MEDS ORDERED: 0.9 % SODIUM CHLORIDE 1000ML 1,000 ML IV PRN (11:05)
[2018-04-25] MEDS ORDERED: ZINC OXIDE 28.35 GM TUBE TOP ONE (12:08)
[2018-04-25] MEDS: LATANOPROST 0.005% OPTH SOLUTION 2.5ML BOTTLE OPTH SCH (21:33)
[2018-04-25] MEDS: ALPRAZOLAM 0.25 MG TABLET PO PRN (21:35)
[2018-04-25] MEDS: TRAZODONE 50 MG TABLET PO SCH (21:35)
[2018-04-26] MEDS: SODIUM CHLORIDE 0.9% IVP SCH ×2 (06:13→16:29)
[2018-04-26] MEDS: PANTOPRAZOLE SODIUM IVP SCH ×2 (06:13→16:29)
[2018-04-26 07:01] LABS: HEMOGLOBIN 9.5 gm/dl (11.6-16.0)
[2018-04-26] MEDS: HYDROMORPHONE HCL 2 MG/ML VIAL IV PRN (08:13)
[2018-04-26] MEDS: SUCRALFATE 1 G/10 ML UD PO SCH ×5 (08:17→22:07)
[2018-04-26] MEDS: HYDROCODONE/APAP 5/325MG TABLET PO PRN ×2 (09:05→21:02)
[2018-04-26] MEDS: ALPRAZOLAM 0.25 MG TABLET PO PRN ×2 (09:32→23:01)
[2018-04-26] MEDS: SYSTANE EYE OPTH SCH ×2 (09:33→22:18)
[2018-04-26] MEDS: GABAPENTIN 300 MG CAPSULE PO SCH ×3 (09:37→22:07)
[2018-04-26] MEDS: AMLODIPINE BESYLATE 5MG TAB PO SCH (09:37)
[2018-04-26] MEDS: DONEPEZIL HCL 5 MG TABLET PO SCH (09:38)
[2018-04-26] MEDS: BUSPIRONE 5 MG TABLET PO SCH ×2 (09:39→22:06)
[2018-04-26] MEDS: PANTOPRAZOLE SODIUM IV 40 MG VIAL IV SCH (09:39)
[2018-04-26] MEDS: BRIMONIDINE OPTH OPTH SCH ×3 (09:39→22:07)
[2018-04-26] MEDS: Non-Formulary MISC (Cyclosporine [Restasis] 1 EACH) OP SCH ×2 (09:39→22:07)
[2018-04-26] MEDS ORDERED: ACETAMINOPHEN 500 MG TABLET PO PRN (10:07)
[2018-04-26] MEDS: HYDROMORPHONE HCL 2 MG/ML VIAL IVP PRN ×2 (16:30→22:15)
[2018-04-26] MEDS: [UNRECOGNIZED DRUG - OTHER] PO SCH (22:07)
[2018-04-26] MEDS: LATANOPROST 0.005% OPTH SOLUTION 2.5ML BOTTLE OPTH SCH (22:18)
[2018-04-26] MEDS: TRAZODONE 50 MG TABLET PO SCH (23:02)
[2018-04-27] MEDS: PANTOPRAZOLE SODIUM IVP SCH ×2 (01:00→10:41)
[2018-04-27] MEDS: SODIUM CHLORIDE 0.9% IVP SCH ×2 (01:00→10:41)
[2018-04-27] MEDS: HYDROMORPHONE HCL 2 MG/ML VIAL IVP PRN ×2 (05:50→14:46)
[2018-04-27 06:36] LABS: HEMATOCRIT 33.4 % (35.0-47.0); HEMOGLOBIN 10.4 gm/dl (11.6-16.0)
[2018-04-27] MEDS: AMLODIPINE BESYLATE 5MG TAB PO SCH (09:09)
[2018-04-27] MEDS: DONEPEZIL HCL 5 MG TABLET PO SCH (09:09)
[2018-04-27] MEDS: GABAPENTIN 300 MG CAPSULE PO SCH ×3 (09:09→21:23)
[2018-04-27] MEDS: Non-Formulary MISC (Cyclosporine [Restasis] 1 EACH) OP SCH ×2 (09:10→21:23)
[2018-04-27] MEDS: BUSPIRONE 5 MG TABLET PO SCH ×2 (09:10→21:20)
[2018-04-27] MEDS: SUCRALFATE 1 G/10 ML UD PO SCH ×4 (09:10→21:22)
[2018-04-27] MEDS: BRIMONIDINE OPTH OPTH SCH ×3 (09:15→21:23)
[2018-04-27] MEDS: SYSTANE EYE OPTH SCH ×2 (09:15→21:23)
[2018-04-27] MEDS: [UNRECOGNIZED DRUG - OTHER] PO SCH ×3 (09:41→21:23)
[2018-04-27] MEDS: PANTOPRAZOLE SODIUM IV 40 MG VIAL IV SCH (09:42)
[2018-04-27] MEDS: HYDROCODONE/APAP 5/325MG TABLET PO PRN ×2 (10:32→21:21)
[2018-04-27] MEDS: LATANOPROST 0.005% OPTH SOLUTION 2.5ML BOTTLE OPTH SCH (21:22)
[2018-04-27] MEDS: ALPRAZOLAM 0.25 MG TABLET PO PRN (22:50)
[2018-04-27] MEDS: TRAZODONE 50 MG TABLET PO SCH (22:50)
[2018-04-28] MEDS: HYDROMORPHONE HCL 2 MG/ML VIAL IVP PRN (05:05)
[2018-04-28 06:30] LABS: HEMATOCRIT 32.6 % (35.0-47.0); HEMOGLOBIN 10.1 gm/dl (11.6-16.0)
[2018-04-28] MEDS ORDERED: HYDROMORPHONE HCL 2 MG/ML VIAL IVP ONE (08:13)
--- NOTE | 2018-04-28 10:26 | Physician Progress Note ---
Subjective - Date Date of Physician Progress Note: 04/28/18 - Subjective Subjective Comment: PROGRESS NOTE 04/28/18: Dr. Barbosa Covering Dr. Chan. The patient is awake, alert and oriented but complains of increasing pain overnight. 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 She was in severe pain this morning and required an additional dose of Dilaudid 1mg this morning before rounds. On examination this morning she says that her pain has improved and she is more comfortable. Regarding her GI bleed, the patient reports one loose bowel movement without blood. She also was able to tolerate a diet yesterday afternoon without abdominal discomfort. Objective - Vital Signs Vital Signs: Vital Signs - Last 24 Hrs Temp Pulse Pulse Resp BP BP Pulse Ox 04/28/18 08:41 72 18 04/28/18 06:00 97.6 F 72 18 197/87 98 04/27/18 22:00 98.0 F 64 18 133/75 98 04/27/18 21:00 18 04/27/18 18:00 97.9 F 72 12 111/46 04/27/18 14:56 99.3 F 117/59 04/27/18 14:00 99.1 F 62 12 140/60 98 - General General Appearance: Alert, Oriented x3, Cooperative, No acute distress, Other ( elderly, resting tremor) - Head Head exam: Normal inspection - Eye Eye exam: Normal appearance, PERRL Pupils: Normal accommodation - ENT ENT exam: Normal exam, Mucous membranes moist, Normal external ear exam, Normal orophraynx, TM's normal bilaterally Ear exam: Normal external inspection. negative: External canal tenderness Nasal Exam: Normal inspection. negative: Discharge, Sinus tenderness Mouth exam: Normal external inspection, Tongue normal Teeth exam: Normal inspection. negative: Dental caries Throat exam: Normal inspection. negative: Tonsillar erythema, Tonsillar exudate - Neck Neck exam: Normal inspection, Full ROM, Other (JVD at 30 degress head elevation) . negative: Tenderness - Respiratory Respiratory exam: Normal lung sounds bilaterally. negative: Respiratory distress - Cardiovascular Cardiovascular Exam: Regular rate, Normal rhythm, Normal heart sounds - GI/Abdominal GI/Abdominal exam: Soft, Normal bowel sounds, Tenderness (mid and epigastric abdominal tenderness on palpation). negative: Distended, Rigid - Rectal Rectal exam: Deferred - exam: Deferred - Extremities Extremities exam: Normal inspection, Full ROM, Normal capillary refill. negative: Calf tenderness, Pedal edema, Tenderness - Back Back exam: Reports: Normal inspection, Full ROM. Denies: Muscle spasm, Rash noted, Tenderness - Neurological Neurological exam: Alert, CN II-XII intact, Normal gait, Oriented X3, Reflexes normal. negative: Motor sensory deficit - Psychiatric Psychiatric exam: Normal affect, Normal mood - Skin Skin exam: Dry, Intact, Normal color, Warm Assessment and Plan - Assessment and Plan (1) GI bleeding Current Visit: Yes Status: Acute Base Code: K92.2 - GASTROINTESTINAL HEMORRHAGE, UNSPECIFIED Comment: 04/28/18: - the patient has not had any blood in stools over the past 24 hors and has been able to tolerate diet well. - Protonix to 40mg daily, cont with Carafate, IV fluids Nacl 0.9% @ 75 ml/hr. - GI consult pending. - Hgb stable at 10.2 gm/dL. (2) Dementia Current Visit: Yes Status: Acute Base Code: F03.90 - UNSPECIFIED DEMENTIA WITHOUT BEHAVIORAL DISTURBANCE Comment: 04/28/18: - resume Aricept (3) Chronic pain Current Visit: Yes Status: Acute Base Code: G89.29 - OTHER CHRONIC PAIN Comment: 04/28/18: - patient has chronic back and leg pain due to OA. - On [place] 10/325mg TID which is being tapered to BID. - Dilaudid 0.5mg Q6H PRN - (4) HTN (hypertension) Current Visit: Yes Status: Acute Base Code: I10 - ESSENTIAL (PRIMARY) HYPERTENSION Comment: 04/28/18: - BP stable on Norvasc 5mg. (5) Full code status Current Visit: Yes Status: Acute Base Code: Z78.9 - OTHER SPECIFIED HEALTH STATUS Comment: 04/28/18: - FULL CODE Results - Labs Result Diagrams: 04/28/18 06:09 04/25/18 06:15 Labs Last 24 Hours: Laboratory Results - last 24 hr 04/28/18 06:09 Hgb 10.1 L Hct 32.6 L DVT/PE Assessment - Risk for VTE Risk for VTE: No Risk Level: Moderate Risk Assessment Date: 04/28/18 Risk Assessment Time: 12:46 VTE Orders Placed or Will Be Placed: Yes - Active Medicaitons Current Medications: Current Medications Acetaminophen (Tylenol 500mg Tab) 500 mg PO Q6H PRN PRN Reason: Analgesia Hydrocodone Bitart/Acetaminophen ([place] 5mg/325mg) 1 each PO BID PRN PRN Reason: Pain - Moderate (5-7) Last Admin: 04/27/18 21:21 Dose: 1 each Alprazolam (Xanax) 0.25 mg PO BID PRN PRN Reason: ANXIETY Last Admin: 04/27/18 22:50 Dose: 0.25 mg Amlodipine Besylate (Norvasc) 5 mg PO DAILY [facility] Last Admin: 04/27/18 09:09 Dose: 5 mg Buspirone HCl (Buspar) 10 mg PO BID [facility] Last Admin: 04/27/18 21:20 Dose: 10 mg Donepezil HCl (Aricept) 10 mg PO DAILY [facility] Last Admin: 04/27/18 09:09 Dose: 10 mg Gabapentin (Neurontin) 300 mg PO TID [facility] Last Admin: 04/27/18 21:23 Dose: 300 mg Hydromorphone HCl (Dilaudid) 0.5 mg IVP Q6HR PRN PRN Reason: PAIN - MODERATE (5-7) Last Admin: 04/28/18 05:05 Dose: 0.5 mg Sodium Chloride () 1,000 mls @ 15 mls/hr IV .Q24H PRN PRN Reason: LARGE VOLUME IV Last Admin: 04/25/18 19:54 Dose: 15 mls/hr Latanoprost (Xalatan) 1 drop OPTH QHS [facility] Last Admin: 04/27/18 21:22 Dose: 1 drop Metoclopramide HCl (Reglan) 10 mg IVP Q6H PRN PRN Reason: NAUSEA Non-Formulary Medication (Cyclosporine [Restasis]) 1 each OP BID [facility] Last Admin: 04/27/18 21:23 Dose: 1 each Non-Formulary Medication (Dextran 70/Hypromellose [Artificial Tears]) 1 each OP ASDIR PRN PRN Reason: dry eyes Last Admin: 04/26/18 09:34 Dose: 1 each Non-Formulary Medication (Non-Formulary) 800 PO TID [facility] Last Admin: 04/27/18 21:23 Dose: 800 Ondansetron HCl (Zofran) 4 mg IVP Q4H PRN PRN Reason: NAUSEA Pantoprazole Sodium (Protonix Iv) 40 mg IV DAILY [facility] Last Admin: 04/27/18 09:42 Dose: Not Given Patient Own Med: Brimonidine ( Alphagan) Opth Drops 1 each OPTH TID [facility] Last Admin: 04/27/18 21:23 Dose: 1 each Patient Own Med: (Systane Eye Drops) 1 each OPTH BID [facility] Last Admin: 04/27/18 21:23 Dose: 1 each Sucralfate (Carafate) 1 g PO QID [facility] Last Admin: 04/27/18 21:22 Dose: 1 g Trazodone HCl (Desyrel) 150 mg PO QHS [facility] Last Admin: 04/27/18 22:50 Dose: 150 mg AMI Plan - Labs Result Diagrams: 04/28/18 06:09 04/25/18 06:15
[2018-04-28] MEDS: SUCRALFATE 1 G/10 ML UD PO SCH (10:53)
[2018-04-28] MEDS: GABAPENTIN 300 MG CAPSULE PO SCH (10:56)
[2018-04-28] MEDS: BUSPIRONE 5 MG TABLET PO SCH (10:56)
[2018-04-28] MEDS: AMLODIPINE BESYLATE 5MG TAB PO SCH (10:56)
[2018-04-28] MEDS: [UNRECOGNIZED DRUG - OTHER] PO SCH (10:57)
[2018-04-28] MEDS: BRIMONIDINE OPTH OPTH SCH (10:58)
[2018-04-28] MEDS: Non-Formulary MISC (Cyclosporine [Restasis] 1 EACH) OP SCH (10:58)
[2018-04-28] MEDS: SYSTANE EYE OPTH SCH (10:59)
[2018-04-28] MEDS: PANTOPRAZOLE SODIUM IV 40 MG VIAL IV SCH (11:02)
[2018-04-28] MEDS: HYDROCODONE/APAP 5/325MG TABLET PO PRN (11:06)
--- NOTE | 2018-04-28 12:52 | Discharge Summary ---
Providers Discharge Summary Date: 04/28/18 Date of admission: 04/24/18 09:31 Attending physician: Shorty Chan Primary care physician: Shorty Chan Consults: Consult Orders 04/27/18 18:13 Consult NOW Consulting Provider: [facility] Physician Instructions: Room 19 Reason For Exam: GI Bleed Physical Exam - Vital Signs Vital Signs: Vital Signs - Last 24 Hrs Temp Pulse Pulse Resp BP BP Pulse Ox 04/28/18 11:00 97.7 F 67 18 155/61 93 L 04/28/18 09:00 72 67 18 04/28/18 08:41 72 18 04/28/18 06:00 97.6 F 72 18 197/87 98 04/27/18 22:00 98.0 F 64 18 133/75 98 04/27/18 21:00 18 04/27/18 18:00 97.9 F 72 12 111/46 04/27/18 14:56 99.3 F 117/59 04/27/18 14:00 99.1 F 62 12 140/60 98 - General General Appearance: Alert, Oriented x3, Cooperative, No acute distress, Other ( elderly, resting tremor) - Head Head exam: Normal inspection - Eye Eye exam: Normal appearance, PERRL Pupils: Normal accommodation - ENT ENT exam: Normal exam, Mucous membranes moist, Normal external ear exam, Normal orophraynx, TM's normal bilaterally Ear exam: Normal external inspection. negative: External canal tenderness Nasal Exam: Normal inspection. negative: Discharge, Sinus tenderness Mouth exam: Normal external inspection, Tongue normal Teeth exam: Normal inspection. negative: Dental caries Throat exam: Normal inspection. negative: Tonsillar erythema, Tonsillar exudate - Neck Neck exam: Normal inspection, Full ROM, Other (JVD at 30 degress head elevation) . negative: Tenderness - Respiratory Respiratory exam: Normal lung sounds bilaterally. negative: Respiratory distress - Cardiovascular Cardiovascular Exam: Regular rate, Normal rhythm, Normal heart sounds - GI/Abdominal GI/Abdominal exam: Soft, Normal bowel sounds, Tenderness (mid and epigastric abdominal tenderness on palpation). negative: Distended, Rigid - Rectal Rectal exam: Deferred - exam: Deferred - Extremities Extremities exam: Normal inspection, Full ROM, Normal capillary refill. negative: Calf tenderness, Pedal edema, Tenderness - Back Back exam: Reports: Normal inspection, Full ROM. Denies: Muscle spasm, Rash noted, Tenderness - Neurological Neurological exam: Alert, CN II-XII intact, Normal gait, Oriented X3, Reflexes normal. negative: Motor sensory deficit - Psychiatric Psychiatric exam: Normal affect, Normal mood - Skin Skin exam: Dry, Intact, Normal color, Warm Hospitalization - Hospitalization Admission Diagnosis: 1. Severe Abdominal Pain with Duodenal ulcer. - Problem List/Discharge Diagnosis (1) GI bleeding Current Visit: Yes Status: Acute Base Code: K92.2 - GASTROINTESTINAL HEMORRHAGE, UNSPECIFIED Comment: 04/28/18: - the patient has not had any blood in stools over the past 24 hors and has been able to tolerate diet well. - Protonix to 40mg daily, cont with Carafate, IV fluids Nacl 0.9% @ 75 ml/hr. - GI consult pending. - Hgb stable at 10.2 gm/dL. (2) Dementia Current Visit: Yes Status: Acute Base Code: F03.90 - UNSPECIFIED DEMENTIA WITHOUT BEHAVIORAL DISTURBANCE Comment: 04/28/18: - resume Aricept (3) Chronic pain Current Visit: Yes Status: Acute Base Code: G89.29 - OTHER CHRONIC PAIN Comment: 04/28/18: - patient has chronic back and leg pain due to OA. - On [place] 10/325mg TID which is being tapered to BID. - Dilaudid 0.5mg Q6H PRN - (4) HTN (hypertension) Current Visit: Yes Status: Acute Base Code: I10 - ESSENTIAL (PRIMARY) HYPERTENSION Comment: 04/28/18: - BP stable on Norvasc 5mg. (5) Full code status Current Visit: Yes Status: Acute Base Code: Z78.9 - OTHER SPECIFIED HEALTH STATUS Comment: 04/28/18: - FULL CODE - Hospitalization Course Hospital Course: Mrs. Barrera is a 82 y/o female with abdominal pain. The initial concern was for acute coronary disease and she was given Nitorglycerin but this did not resolve symptoms.The ECG and lab workup was negative for ACS. The patient was admitted to Dr. Chan and CT of her abdomen showed esophageal thickening and duodenum with concern for ulcers. The patient was started on IV protonix and serial H&H draws taken. GI was consulted but was not available within the first 48 hours of admission. The patient still continued to have pain and there was also complaint of melanotic stool. However she remained hemodynamically stable and was able tolerate diet. Her Hb remained stable and she was evaluated by GI today with recommendation for EGD considering her melena however the patient wanted to go home and have the procedure done as an outpatient. Procedures: Imaging and X-Rays 04/24/18 06:08 ABDOMEN/PELVIS W CONTRAST [CT] Stat 04/24/18 06:15 CXR [CHEST 2 VIEWS] [RAD] Stat Cardiology Procedures 04/24/18 05:44 EKG NOW Abnormal Labs: Abnormal Lab Results 04/24/18 04/24/18 04/24/18 Range/Units 06:05 06:05 06:05 RBC (3.80-5.40) M/uL Hgb (11.6-16.0) gm/dl Hct (35.0-47.0) % MCH (27-33) pg MCHC (32-36) g/dl RDW 15.6 H (11.5-14.5) % Neutrophils % 82.0 H (47-80) % Monocytes % (0-9) % Lymphocytes 10.0 L (16-45) % APTT 44.6 H (24.5-39.1) SECONDS Chloride 97 L (98-107) mmol/L Carbon Dioxide (22-29) mmol/L Anion Gap (7-16) Random Glucose 126 H (74-109) mg/dL Calcium (8.8-10.2) mg/dL AST 9 L (10.0-35.0) U/L Albumin 3.7 L (4.0-5.0) g/dL Urine Protein (NEGATIVE) Urine Blood (NEGATIVE) Stool Occult Blood (NEGATIVE) 04/24/18 04/24/18 04/25/18 Range/Units 09:18 17:04 06:15 RBC 3.46 L (3.80-5.40) M/uL Hgb 9.3 L (11.6-16.0) gm/dl Hct 31.2 L (35.0-47.0) % MCH 26.8 L (27-33) pg MCHC 29.8 L (32-36) g/dl RDW 15.7 H (11.5-14.5) % Neutrophils % (47-80) % Monocytes % 9.5 H (0-9) % Lymphocytes (16-45) % APTT (24.5-39.1) SECONDS Chloride (98-107) mmol/L Carbon Dioxide (22-29) mmol/L Anion Gap (7-16) Random Glucose (74-109) mg/dL Calcium (8.8-10.2) mg/dL AST (10.0-35.0) U/L Albumin (4.0-5.0) g/dL Urine Protein 300 mg/dl H (NEGATIVE) Urine Blood Small H (NEGATIVE) Stool Occult Blood Positive H (NEGATIVE) 04/25/18 04/26/18 04/27/18 Range/Units 06:15 06:14 06:16 RBC (3.80-5.40) M/uL Hgb 9.5 L 10.4 L (11.6-16.0) gm/dl Hct 31.0 L 33.4 L (35.0-47.0) % MCH (27-33) pg MCHC (32-36) g/dl RDW (11.5-14.5) % Neutrophils % (47-80) % Monocytes % (0-9) % Lymphocytes (16-45) % APTT (24.5-39.1) SECONDS Chloride (98-107) mmol/L Carbon Dioxide 19.0 L (22-29) mmol/L Anion Gap 18.0 H (7-16) Random Glucose (74-109) mg/dL Calcium 8.3 L (8.8-10.2) mg/dL AST (10.0-35.0) U/L Albumin (4.0-5.0) g/dL Urine Protein (NEGATIVE) Urine Blood (NEGATIVE) Stool Occult Blood (NEGATIVE) 04/28/18 Range/Units 06:09 RBC (3.80-5.40) M/uL Hgb 10.1 L (11.6-16.0) gm/dl Hct 32.6 L (35.0-47.0) % MCH (27-33) pg MCHC (32-36) g/dl RDW (11.5-14.5) % Neutrophils % (47-80) % Monocytes % (0-9) % Lymphocytes (16-45) % APTT (24.5-39.1) SECONDS Chloride (98-107) mmol/L Carbon Dioxide (22-29) mmol/L Anion Gap (7-16) Random Glucose (74-109) mg/dL Calcium (8.8-10.2) mg/dL AST (10.0-35.0) U/L Albumin (4.0-5.0) g/dL Urine Protein (NEGATIVE) Urine Blood (NEGATIVE) Stool Occult Blood (NEGATIVE) Condition at Discharge: (2) Stable Discharge Medications - Discharge Medications Prescriptions: Pantoprazole Sodium [Protonix] 40 mg PO DAILY #30 tablet. Sucralfate [Carafate] 1 g PO QID #20 udc Home Medications: Ambulatory Orders Acetaminophen [Tylenol] 325 mg PO TID 04/24/18 [Last Taken 04/23/18] Albuterol Sulfate [Ventolin Hfa] 1 - 2 puff IH .EVERY 4-6 HOURS PRN 04/24/18 [ Last Taken Unknown] Alprazolam [Xanax] 0.25 mg PO BID PRN 04/24/18 [Last Taken 04/24/18] Amlodipine Besylate [Norvasc] 5 mg PO DAILY 04/24/18 [Last Taken 04/23/18] Brimonidine Tartrate [Alphagan P] 1 drop OPTH TID 04/24/18 [Last Taken Unknown] Buspirone HCl [Buspar] 10 mg PO BID 04/24/18 [Last Taken 04/23/18] Cyclosporine [Restasis] 1 each OP BID 04/24/18 [Last Taken 04/23/18] Dextran 70/Hypromellose [Artificial Tears] 1 each OP ASDIR PRN 04/24/18 [Last Taken Unknown] Docusate Sodium [Colace] 100 mg PO BID 04/24/18 [Last Taken 04/23/18] Donepezil HCl [Aricept] 10 mg PO DAILY 04/24/18 [Last Taken 04/23/18] Gabapentin [Neurontin] 300 mg PO Q8H 04/24/18 [Last Taken Unknown] Hydrocodone/Acetaminophen [[place] 5mg/325mg] 1 tab PO BID PRN 04/24/18 [Last Taken 04/23/18] Latanoprost 0.005% Opth [place] [Xalatan] 1 drop OPTH QHS 04/24/18 [Last Taken 04/23] Metaxalone [Skelaxin] 800 mg PO TID 04/24/18 [Last Taken 04/23/18] Montelukast Sodium [Singulair] 10 mg PO QHS 04/24/18 [Last Taken 04/23/18] Multivitamin [Daily Multiple Vitamin] 1 each PO DAILY 04/24/18 [Last Taken 04/23] Polyethylene Glycol 3350 [Miralax] 1 packet PO DAILY 04/24/18 [Last Taken ] Propylene Glycol [Systane Balance] 20 ml OP Q2H PRN 04/24/18 [Last Taken Unknown ] Simvastatin [Zocor] 20 mg PO DAILY 04/24/18 [Last Taken 04/23/18] Sumatriptan Succinate [Imitrex] 50 mg PO DAILY PRN 04/24/18 [Last Taken 04/12/18 ] Trazodone HCl 150 mg PO QHS 04/24/18 [Last Taken 04/23/18] Vit C/Vit E/Lutein/Min/Triplett-3 [Ocuvite Softgel] 1 each PO DAILY 04/24/18 [Last Taken 04/23/18] Gabapentin [Neurontin] 300 mg PO TID capsule 04/28/18 [Last Taken Unknown] Pantoprazole Sodium [Protonix] 40 mg PO DAILY #30 tablet. 04/28/18 [Last Taken Unknown] Sucralfate [Carafate] 1 g PO QID #20 udc 04/28/18 [Last Taken Unknown] Discharge Plan - Discharge Instructions Activity at Discharge: Resume Usual Activities As Tolerated Diet at Discharge: Low Fat, Low Cholesterol, Low Salt Diet Instructions: Abdominal Pain (ED) Additional Instructions: You have been scheduled to follow up with GI for upper endoscopy on May 19. Please follow up with [facility] for this. Medications prescribed are Protonix 40mg daily and Carafate 1gm QID. Pain medication are to be refilled by your PCP. Dr. Chan will follow up with you when you return home regarding your pain management plan. If you have any blood in the stool or increased abdominal pain please return to the ED. Quality Measures - Quality Measures Quality Measures: Advance Directives, Documentation of Current Medications in Medical Record, Elder Maltreatment Screen and Follow-Up Plan, Screening for High Blood Pressure and F/U Documented - Current Medications Quality Measure: Measure #130: Documentation of Current Medications Documentation of Current Medications: <Current Medications Documented/Reviewed> [E5849] - Blood Pressure Screening Quality Measure: Screening for High Blood Pressure and Follow-Up Documented Does Patient Have Any of the Following: Active Dx of HTN Blood Pressure Classification: Normal BP Reading Systolic Measurement: 117 Diastolic Measurement: 59 Screening for High Blood Pressure: Patient Exclusion, Hx of HTN [G9744] - Advance Directives Quality Measure: Measure #47: Care Plan Advance Directives Established: No Advance Directives Information Provided To Patient: Yes Advance Directives on File: No Advance Care Planning: <Care Plan/Decision Maker Documented; Discussed & Documented> [1881K] - Elder Abuse Suspicion Index Screening: Elder Abuse Suspicion Index Screening Rely on people for bathing, dressing, shopping, banking, etc: Yes Prevented from getting food, clothes, medication, etc: No Made to feel shamed or threatened by someone: No Forced to sign papers or use money against will: No Feel afraid, touched in ways not wanted or hurt physically: No Poor eye contact, withdrawn, malnourished, cuts or bruises: No Screening Result: Negative result EASI Reference Information: Yoanna SERRANO, Charles C, Alivia D, Nova Tucker.Development and validation of a tool to assist physicians identification of elder abuse: The Elder Abuse Suspicion Index (EASI ). Journal of Elder Abuse and Neglect, 2008; 20 (3): 276-300. - Elder Maltreatment Screen Quality Measures: Elder Maltreatment Screen and Follow-Up Plan Elder Maltreatment Screen: <Negative, No Follow-Up Plan Required> [S0179]
== END 2018-04-28 14:26 | disposition home health service (06) | DRG 391 ==
LOC: ER 05:35 → MEDSURG 09:31
PROVIDERS: ADMIT Emergency Medicine; ATTEND Emergency Medicine
DX: R10.13 Epigastric pain (principal); K85.90 Acute pancreatitis without necrosis or infection, unspecified; K57.92 Diverticulitis of intestine, part unspecified, without perforation or abscess without bleeding; H34.239 Retinal artery branch occlusion, unspecified eye; K26.9 Duodenal ulcer, unspecified as acute or chronic, without hemorrhage or perforation; R07.9 Chest pain, unspecified; R11.2 Nausea with vomiting, unspecified; R19.7 Diarrhea, unspecified; I10 Essential (primary) hypertension; J44.9 Chronic obstructive pulmonary disease, unspecified; E78.00 Pure hypercholesterolemia, unspecified; F41.8 Other specified anxiety disorders; F03.90 Unspecified dementia, unspecified severity, without behavioral disturbance, psychotic disturbance, mood disturbance, and anxiety; M81.0 Age-related osteoporosis without current pathological fracture; Z86.73 Personal history of transient ischemic attack (TIA), and cerebral infarction without residual deficits; Z87.442 Personal history of urinary calculi
CPT/HCPCS: 83690; 85730; 85610; 80053; 81001; 84443; 84484; 85027; 83880; 71046; 74177; 93005; 93010; Q9967; J2405; J1170 ×2; 80048; 82272; 85014; 85018; 85025; 94760; 94761; 96374; 96375; 96376; 99233; 99285; C9113; J2765